=== PATIENT | female | born 1950 | race Caucasian/White ===

== ENCOUNTER → 2017-02-16 | Outpatient (CLI) | payer MEDICARE, BC ==
[~2017-02-16] MED LIST: AEROSPAN80 MCG/Act IH; CALCIUM 600 PLU1 TAB PO; COLACE 100100 MG/CAP PO; COZAAR100 MG PO; GLUCOPHAGE500 MG/TAB PO; HCTZ 25MG TAB25 MG PO; LIPITOR20 MG PO; MASON NATURAL1200 MG PO; MIRALAX PA17 GM/Dose PO; MULTI VITAMINS1 TAB PO; NEURONTIN600 MG/TAB PO; PROAIR HFA0.09 MG/AC IH; SINGULAIR 110 MG/TAB PO
== END ==
LOC: COL.RAD 11:04
DX: Q43.8 Other specified congenital malformations of intestine (principal); K63.89 Other specified diseases of intestine; Z86.010 Personal history of colon polyps

== ENCOUNTER → 2017-03-02 | Outpatient (CLI) | payer MEDICARE, BC | LOC: COL.RAD 09:06 | DX: Q43.8 Other specified congenital malformations of intestine (principal); M47.816 Spondylosis without myelopathy or radiculopathy, lumbar region; Z90.710 Acquired absence of both cervix and uterus; Z86.010 Personal history of colon polyps | CPT/HCPCS: Q9967 ==

== ENCOUNTER → 2017-09-14 | Outpatient (CLI) | payer MEDICARE, BC | LOC: COL.CARD 09:41 | DX: R00.1 Bradycardia, unspecified (principal) ==

== ENCOUNTER → 2017-09-27 | Outpatient (CLI) | payer MEDICARE, BC | LOC: MC.RAD 10:12 | DX: Z12.31 Encounter for screening mammogram for malignant neoplasm of breast (principal) ==

== ENCOUNTER → 2017-10-18 | Outpatient (CLI) | payer MEDICARE, BC | LOC: COL.RAD 06:50 | DX: N28.1 Cyst of kidney, acquired (principal); N28.9 Disorder of kidney and ureter, unspecified | CPT/HCPCS: Q9967 ==

== ENCOUNTER 2018-01-08 09:56 | Emergency (ER) | payer MEDICARE, BC ==
[~2018-01-08] VITALS: Ht 167.6 cm; Wt 113.6 kg
[2018-01-08 10:13] VITALS: TEMP 99.3
[2018-01-08] MEDS ORDERED: ASPIRIN E.C. 8181 MG PO (10:16)
[2018-01-08] MEDS ORDERED: SYNTHROID0.05 MG/TA PO (10:17)
[2018-01-08] MEDS ORDERED: NORVASC 5MG5 MG/TAB PO (10:17)
[2018-01-08] MEDS ORDERED: 00186-0370-20 IH (10:17)
[2018-01-08 12:00] LABS: COLLECTION METHOD CLEAN CATCH
[2018-01-08 12:09] LABS: PH 7 (5-8); SQUAMOUS EPITHELIAL 0-2 /hpf; URINE APPEARANCE Clear; URINE BACTERIA Rare /hpf; URINE BILIRUBIN Negative (NEGATIVE); URINE BLOOD Negative (NEGATIVE); URINE COLOR Yellow; URINE GLUCOSE Negative (NEGATIVE); URINE KETONE Negative (NEGATIVE); URINE LEUKOCYTE ESTERASE Negative (NEGATIVE); URINE NITRATE Negative (NEGATIVE); URINE PROTEIN(semi-quant) Negative (NEGATIVE); URINE RBC 0-2 /hpf
[2018-01-08] MEDS ORDERED: FLEXERIL 1010 MG/TAB PO (13:00)
[2018-01-08] MEDS ORDERED: MEDROL 4MG DOSPA4 MG PO (13:14)
[2018-01-08 13:15] VITALS: BP 155/55; PULSE 42
== END 2018-01-08 13:17 | disposition home or self-care (01) ==
LOC: COL.ER 09:56
PROVIDERS: Nurse Practitioner
DX: M54.16 Radiculopathy, lumbar region (principal); Z79.84 Long term (current) use of oral hypoglycemic drugs; Z79.82 Long term (current) use of aspirin; Z79.52 Long term (current) use of systemic steroids
CPT/HCPCS: J1885

== ENCOUNTER → 2018-09-28 | Outpatient (CLI) | payer MEDICARE, BC ==
[~2018-09-28] MED LIST changes: +00186-0370-20 IH; +ASPIRIN E.C. 8181 MG PO; +FLEXERIL 1010 MG/TAB PO; +MEDROL 4MG DOSPA4 MG PO; +NORVASC 5MG5 MG/TAB PO; +SYNTHROID0.05 MG/TA PO
== END ==
LOC: COL.VAS 12:05
DX: I08.3 Combined rheumatic disorders of mitral, aortic and tricuspid valves (principal)

== ENCOUNTER → 2018-11-29 | Outpatient (CLI) | payer MEDICARE, BC | LOC: MC.RAD 09:05 | DX: Z12.31 Encounter for screening mammogram for malignant neoplasm of breast (principal); N63.42 Unspecified lump in left breast, subareolar ==

== ENCOUNTER → 2018-12-05 | Outpatient (CLI) | payer MEDICARE, BC | LOC: MC.RAD 07:25 | DX: N63.20 Unspecified lump in the left breast, unspecified quadrant (principal) ==

== ENCOUNTER → 2019-10-03 | Outpatient (CLI) | payer MEDICARE, BC | LOC: COL.VAS 07:25 | DX: I08.0 Rheumatic disorders of both mitral and aortic valves (principal) ==

== ENCOUNTER → 2020-10-23 | Outpatient (CLI) | payer MEDICARE, BC | LOC: MC.RAD 10:48 | DX: Z12.31 Encounter for screening mammogram for malignant neoplasm of breast (principal) ==

== ENCOUNTER 2020-11-29 13:00 | Outpatient (RCR) | payer MEDICARE, BC ==
[~2020-11-29] VITALS: Ht 167.6 cm; Wt 92.4 kg
[2020-11-29] VITALS (11 sets, daily range): BP systolic 113–156; BP diastolic 62–90; PULSE 44–51; TEMP 98.4–98.8
[2020-11-29] MEDS ORDERED: MELATONIN EXTRA1 TAB PO (14:14)
[2020-11-29] MEDS ORDERED: GLUCOPHAGE500 MG/TAB PO (14:16)
[2020-11-29] MEDS ORDERED: LIPITOR20 MG PO (14:16)
[2020-11-29] MEDS ORDERED: PROAIR HFA0.09 MG/AC IH (14:17)
== END 2020-11-29 18:30 | disposition home or self-care (01) ==
LOC: EUO 13:00 → EDSTATUS 13:00 → EUO 18:30
DX: D53.9 Nutritional anemia, unspecified (principal)
CPT/HCPCS: J7050; P9040

== ENCOUNTER 2020-12-20 05:19 | Day surgery (SDC) | payer MEDICARE, BC ==
[~2020-12-20] VITALS: Ht 167.6 cm; Wt 94.0 kg
[~2020-12-20 05:19] MED LIST changes: +MELATONIN EXTRA1 TAB PO
[2020-12-20 05:53] VITALS: BP 161/46; PULSE 56; TEMP 98.2
[2020-12-20] MEDS ORDERED: DULCOLAX STOOL100 MG PO (06:01)
[2020-12-20] MEDS ORDERED: MIRALAX PA17 GM/Dose PO (06:03)
[2020-12-20] MEDS ORDERED: ONE-A-DAY ESSE1 EACH PO (06:05)
[2020-12-20] MEDS ORDERED: 00186-0370-20 IH (06:06)
--- NOTE | 2020-12-20 06:08 | NUR ---
TO RM 8 AT 0530- CALL LIGHT IN REACH AT BEDSIDE.
[2020-12-20 08:46] VITALS: BP 141/47; PULSE 59
[2020-12-20] MEDS ORDERED: NORCO 325 MG-51 TAB PO (08:46)
--- NOTE | 2020-12-20 08:46 | NUR ---
TO RM 8 PER CART FROM OR. ALERT ORIENTED X3, TALKING TO STAFF AND . DRESSING OVER PORT SITE CLEAN DRY INTACT WITH PORT ACCESSED. INCISION ABOVE PORT SITE WITH MARQUEZ SET CLEAN DRY INTACT. DENIES PAIN OR DISCOMFORT
[2020-12-20 09:00] VITALS: BP 126/43; PULSE 49
--- NOTE | 2020-12-20 09:00 | NUR ---
RECEIVED CRANBERRY JUICE AND MUFFIN. AT BEDSIDE.
[2020-12-20 09:15] VITALS: BP 124/36; PULSE 47
--- NOTE | 2020-12-20 09:15 | NUR ---
PATIENT STATED HER PULSE IS ALWAYS SLOW. ATE 100% AND TOLERATED WELL.
[2020-12-20 09:30] VITALS: BP 119/38; PULSE 48
--- NOTE | 2020-12-20 09:30 | NUR ---
PATIENT STATED SHE FEELS GOOD AND READY TO GO HOME.
[2020-12-20 09:45] VITALS: TEMP 98
--- NOTE | 2020-12-20 09:45 | NUR ---
RECEIVED DISCHARGE INSTRUCTIONS AND VERBALIZED UNDERSTANDING. PATIENT TO GO TO [facility] UPON DISCHARGE. DISCONTINUED IV AND INT- CATHETER INTACT. PATIENT GETTING DRESSED.
--- NOTE | 2020-12-20 09:55 | NUR ---
DISCHARGED PER WC BY NURSING STAFF TO PRIVATE CAR IN CARE OF MARIKA.
== END 2020-12-20 10:09 | disposition home or self-care (01) ==
LOC: SDCO 05:19
DX: D46.9 Myelodysplastic syndrome, unspecified (principal); D63.0 Anemia in neoplastic disease; D53.9 Nutritional anemia, unspecified; I10 Essential (primary) hypertension; G47.33 Obstructive sleep apnea (adult) (pediatric); J45.909 Unspecified asthma, uncomplicated; E07.9 Disorder of thyroid, unspecified; E78.5 Hyperlipidemia, unspecified; E11.42 Type 2 diabetes mellitus with diabetic polyneuropathy; Z79.84 Long term (current) use of oral hypoglycemic drugs; Z80.0 Family history of malignant neoplasm of digestive organs; Z80.8 Family history of malignant neoplasm of other organs or systems; Z20.822 Contact with and (suspected) exposure to COVID-19; Z79.899 Other long term (current) drug therapy; Z79.890 Hormone replacement therapy
CPT/HCPCS: C1788; J0690; J1644; J2405; J2704; J3010; J7120

== ENCOUNTER 2021-01-04 12:43 | Outpatient (RCR) | payer MEDICARE, BC ==
[2021-01-04] VITALS (7 sets, daily range): BP systolic 127–1138; BP diastolic 39–53; PULSE 44–51; TEMP 98.1–98.3
[~2021-01-04 12:43] MED LIST changes: +DULCOLAX STOOL100 MG PO; +NORCO 325 MG-51 TAB PO; +ONE-A-DAY ESSE1 EACH PO
--- NOTE | 2021-01-04 18:01 | NUR ---
Transfusion complete, port deaccessed, flushed with NS, followed by heparin flush. Pt tolerated transfusion well with no adverse reactions noted.
== END 2021-01-05 12:14 | disposition home or self-care (01) ==
LOC: EUO 12:43
DX: D46.21 Refractory anemia with excess of blasts 1 (principal); D53.9 Nutritional anemia, unspecified; R53.83 Other fatigue
CPT/HCPCS: P9040

== ENCOUNTER 2021-03-07 16:50 | Outpatient (RCR) | payer MEDICARE, BC ==
[~2021-03-07] VITALS: Ht 167.6 cm; Wt 94.0 kg
[2021-03-08] VITALS (7 sets, daily range): BP systolic 118–142; BP diastolic 41–62; PULSE 48–54; TEMP 98–98.5
--- NOTE | 2021-03-08 19:16 | NUR ---
Patient tolerated blood transfusion well, vital signs stable, denies any complications, PORT flushed and heparinized, I escorted her to the ER exit where she is leaving with her
== END 2021-03-08 19:22 | disposition home or self-care (01) ==
LOC: EUO 16:50 → MEDICAL 03-08 12:58 → EUO 03-08 13:00
DX: D46.21 Refractory anemia with excess of blasts 1 (principal); D53.9 Nutritional anemia, unspecified
CPT/HCPCS: OP; J7050; P9040

== ENCOUNTER 2021-12-08 19:24 | Inpatient (IN) | payer MEDICARE, BC ==
[~2021-12-08] VITALS: Ht 167.6 cm; Wt 89.8 kg
[2021-12-08] VITALS (30 sets, daily range): BP systolic 132; BP diastolic 61; PULSE 58; TEMP 96.9; O2SAT 93–96
[2021-12-08 20:43] LABS: BASO % 0.3 % (0.0-2.0); EOS # 0.4 K/mm3 (0.0-0.7); EOS % 3.4 % (0.0-4.0); GRAN % 81.3 % (42.2-75.2); HEMOGLOBIN 11.1 g/dl (12.5-16.0); LYMPH # 0.7 K/mm3 (1.2-3.4); LYMPH % 6.3 % (20.0-51.0); MEAN CELL VOLUME 98 fl (80.0-100.0); MEAN CORPUSCULAR HEMOGLOBIN 32 pg (27-31); MEAN CORPUSCULAR HGB CONC 33 g/dl (33.0-37.0); MEAN PLATELET VOLUME 8.9 fl (7.4-10.4); MONO # 0.9 K/mm3 (0.1-0.6); MONO % 8.3 % (1.7-9.3); PLATELET COUNT 181 K/mm3 (130-400); RED BLOOD COUNT 3.43 M/mm3 (4.10-5.30); REDCELL DISTRIBUTION WIDTH-CV 13.9 % (11.5-14.5)
[2021-12-08 20:44] LABS: HEMATOCRIT 33.7 % (37.0-47.0)
[2021-12-08 21:00] LABS: ALBUMIN 3.1 gm/dL (3.4-4.8); BILIRUBIN,TOTAL 2.4 mg/dL (0.2-1.2); CREATININE, serum 0.72 mg/dL (0.57-1.11); TOTAL PROTEIN 6.2 gm/dL (6.2-8.1)
[2021-12-08] MEDS ORDERED: CYMBALTA 60MG60 MG PO (23:34)
[2021-12-08] MEDS ORDERED: TAMBOCOR50 MG PO (23:35)
[2021-12-08] MEDS ORDERED: COREG 3.123.125 MG/T PO (23:35)
[2021-12-08] MEDS ORDERED: ZOVIRAX800 MG PO (23:36)
[2021-12-09] VITALS (105 sets, daily range): BP systolic 109–132; BP diastolic 46–61; PULSE 44–54; TEMP 96.9–98.4; O2SAT 83–99
[2021-12-09 04:29] LABS: HEMOGLOBIN 10.4 g/dl (12.5-16.0); MEAN CELL VOLUME 100 fl (80.0-100.0); MEAN CORPUSCULAR HEMOGLOBIN 33 pg (27-31); MEAN CORPUSCULAR HGB CONC 33 g/dl (33.0-37.0); MEAN PLATELET VOLUME 8.7 fl (7.4-10.4); PLATELET COUNT 181 K/mm3 (130-400); RED BLOOD COUNT 3.18 M/mm3 (4.10-5.30); REDCELL DISTRIBUTION WIDTH-CV 13.5 % (11.5-14.5)
[2021-12-09 04:34] LABS: HEMATOCRIT 31.7 % (37.0-47.0)
[2021-12-09 04:45] LABS: CALCIUM 8.7 mg/dL (8.4-10.2); CREATININE, serum 0.72 mg/dL (0.57-1.11); POTASSIUM 4.5 mmol/L (3.5-4.5)
[2021-12-09 05:04] LABS: LYMPHOCYTE 3 % (20.0-51.0); NEUTROPHILS 97 % (42.0-75.2)
[2021-12-09 05:05] LABS: SCHISTOCYTES 1+; TEAR DROP CELLS 1+
[2021-12-09 05:06] LABS: POLYCHROMASIA 1+
--- NOTE | 2021-12-09 10:51 | NUR ---
First visit from the senior administrative assistant. No needs right now.
--- NOTE | 2021-12-09 14:25 | NUR ---
Swat Team Member met with patient and her , Bandar (ph#[phone]) to discuss discharge planning. [place] and sees Dr. Nate Agarwal for primary care. Patient obtains medications from [facility] or by mail from the [facility] pharmacy. Patient has a front wheeled walker and no other DME at home. Patient reports independence with ADLS and plans to return home at time of discharge. Patient does not normally wear oxygen although she is currently requiring it. Patient is hopeful she will not need it at time of discharge. Patient reports her children in [place], [place] and [place] are her DPOA-HC. SW was unable to locate copy in EMR. Discharge Plan: Home
[2021-12-09] MEDS ORDERED: TYLENOL 8 HR PO (14:35)
[2021-12-09] MEDS ORDERED: MEPRON750 MG/5 M PO (14:36)
[2021-12-09] MEDS ORDERED: ERGOCALCIFER50000 IU PO (14:37)
[2021-12-09] MEDS ORDERED: MAG-OX 400400 MG/TAB PO (14:38)
[2021-12-09] MEDS ORDERED: ASPIRIN E.C. 8181 MG PO (14:40)
[2021-12-09] MEDS ORDERED: PROGRAF 0.5MG0.5 MG PO (14:40)
--- NOTE | 2021-12-09 19:21 | NUR ---
RECEIVED CHANGE OF SHIFT REPORT FROM DAY SHIFT RN.
--- NOTE | 2021-12-09 23:42 | NUR ---
MABLE FROM LAB, CALLED RESULTS FROM 1 BLOOD CULTURE BOTTLE OF GRAM + COCCI W/GRAM STAIN RESULT OF STAPHYLOCOCCUS.
--- NOTE | 2021-12-10 00:33 | NUR ---
Vancomycin Initial Dosing Pharmacy Note Ordering provider: Skip Hammond MD Indication/duration: Bacteremia x 5 days Relevant comorbidities: HTN, MDS w/ hx of [facility] LABS: WBC = 8.4, SCr = 0.72 Recommendation: Will draw troughs and follow levels. Loading dose: 1.5 grams Maintenance dose: 1 gram every 12 hours Trough goal: 15-20 ug/mL
[2021-12-10 03:56] VITALS: BP 120/46; PULSE 41; TEMP 97.2
[2021-12-10 06:18] LABS: HEMOGLOBIN 10.2 g/dl (12.5-16.0); MEAN CELL VOLUME 103 fl (80.0-100.0); MEAN CORPUSCULAR HEMOGLOBIN 32 pg (27-31); MEAN CORPUSCULAR HGB CONC 31 g/dl (33.0-37.0); MEAN PLATELET VOLUME 9.1 fl (7.4-10.4); PLATELET COUNT 189 K/mm3 (130-400); RED BLOOD COUNT 3.15 M/mm3 (4.10-5.30); REDCELL DISTRIBUTION WIDTH-CV 13.5 % (11.5-14.5)
[2021-12-10 06:26] LABS: HEMATOCRIT 32.5 % (37.0-47.0)
--- NOTE | 2021-12-10 06:38 | NUR ---
CHANGE OF SHIFT REPORT GIVEN TO DAY SHIFT RNCHARITY.
[2021-12-10 06:42] LABS: CALCIUM 8.7 mg/dL (8.4-10.2); CREATININE, serum 0.79 mg/dL (0.57-1.11); POTASSIUM 4.3 mmol/L (3.5-4.5)
[2021-12-10 06:51] LABS: LYMPHOCYTE 6 % (20.0-51.0); NEUTROPHILS 93 % (42.0-75.2)
[2021-12-10 06:52] LABS: HYPOCHROMIA 2+; PLATELET ESTIMATE NORMAL (NORMAL); SCHISTOCYTES 1+; TEAR DROP CELLS 1+
[2021-12-10 07:22] VITALS: BP 137/66; PULSE 50; TEMP 97.9
--- NOTE | 2021-12-10 08:43 | NUR ---
Pt assessment complete. Pt is laying in bed upon entry, she is A/O x4. Her breathing is currently even and unlabored on CPAP, switched to NC. Pt currently denies SOB. Reports very intermittent cough. No pain at this time. Denies N/V. No further needs, call light within reach.
[2021-12-10 11:06] VITALS: BP 125/48; PULSE 56; TEMP 97.4
[2021-12-10 15:41] VITALS: BP 117/74; PULSE 49; TEMP 97.8
--- NOTE | 2021-12-10 19:11 | NUR ---
Pt taken off of O2, SpO2 94% on RA. No needs at this time. Call light within reach.
--- NOTE | 2021-12-10 20:00 | NUR ---
PATIENT IS A&O. NOTED SB IN THE 40'S ON TELE. ALL OTHER VSS. PATIENT WAS WEANED OFF OXYGEN TODAY AND IS NOW 94% ON RA. NO C/O COUGH, SOA OR WHEEZING. NOTED DEMINISHED A&P LUNG RAMIREZ. CLEAR IN UPPER LUNG RAMIREZ. POSITIVE BC. IV ABX INFUSING VIA PUMP INTO RIGHT AC IV PER ORDERS. HS MEDS GIVEN, TOLERATED WELL. EVENING BS WAS 136, NO SSI REQUIRED. GENERAL DIET. PATIENT SITTING UP IN BEDSIDE CHAIR WITH NO COMPLAINTS. HEAD TO TOE ASSESSMENT COMPLETE, SEE CHARTING. NO OTHER NEEDS AT THIS TIME. CALL LIGHT IN REACH.
--- NOTE | 2021-12-10 20:00 | NUR ---
TX GIVEN VIA MOUTHPIECE, TOLERATED WELL.
[2021-12-10 20:52] VITALS: BP 134/55; PULSE 51; TEMP 98.4
[2021-12-10 23:18] VITALS: BP 124/47; PULSE 49; TEMP 97.6
[2021-12-11 04:02] VITALS: BP 131/51; PULSE 49; TEMP 97.3
--- NOTE | 2021-12-11 04:45 | NUR ---
TELE CALLED AND REPORTED PATIENT HR ON TELE DROPPED DOWN INTO THE UPPER 30'S WHILE SLEEPING. PATIENT WAS SOUND ASLEEP WITH C-PAP ON WHEN NURSING WOKE HER UP. ASYMPTOMATIC. ALL OTHER VSS. NOTIFIED HOSPITALIST, SEE MEDS ON HOLD. CARDS TO SEE PATIENT TODAY.
[2021-12-11 06:32] LABS: GRAN % 89.5 % (42.2-75.2); HEMOGLOBIN 10.2 g/dl (12.5-16.0); LYMPH # 0.5 K/mm3 (1.2-3.4); LYMPH % 5.8 % (20.0-51.0); MEAN CELL VOLUME 99 fl (80.0-100.0); MEAN CORPUSCULAR HEMOGLOBIN 32 pg (27-31); MEAN CORPUSCULAR HGB CONC 32 g/dl (33.0-37.0); MEAN PLATELET VOLUME 8.9 fl (7.4-10.4); MONO # 0.3 K/mm3 (0.1-0.6); MONO % 3.8 % (1.7-9.3); PLATELET COUNT 195 K/mm3 (130-400); RED BLOOD COUNT 3.19 M/mm3 (4.10-5.30); REDCELL DISTRIBUTION WIDTH-CV 13.6 % (11.5-14.5)
[2021-12-11 06:35] LABS: HEMATOCRIT 31.5 % (37.0-47.0)
[2021-12-11 06:50] LABS: CALCIUM 8.6 mg/dL (8.4-10.2); CREATININE, serum 0.79 mg/dL (0.57-1.11); MAGNESIUM 2.6 mg/dL (1.6-2.6); POTASSIUM 4.6 mmol/L (3.5-4.5)
[2021-12-11 07:19] VITALS: BP 123/47; PULSE 47; TEMP 97.2
[2021-12-11 11:11] VITALS: BP 129/49; PULSE 45; TEMP 97.7
[2021-12-11 11:38] VITALS: BP 134/52; PULSE 46; TEMP 97.2
[2021-12-11] MEDS ORDERED: PREDNISONE20 MG PO ×2 (12:03)
--- NOTE | 2021-12-11 13:56 | NUR ---
The patient is to discharge back home with her today, 12/11. SW met with the patient and presented and read the IM form outloud to her. The patient verbalized understanding and of discharge today. She signed the form and KIERAN provided her with a copy. No additional needs at this time.
[2021-12-11 15:03] VITALS: BP 127/45; PULSE 50; TEMP 97.8
--- NOTE | 2021-12-11 18:30 | NUR ---
Shift assessment performed. Scheduled medications given. Morning cares provided by student nurse under the supervision of a licensed professional. VSS have been stable, but heart rate has been bradycardic. Patient denies any pain discomfort, SOA, or further needs at this time. Call light in reach. Patient A&O.
--- NOTE | 2021-12-11 19:44 | NUR ---
TX GIVEN VIA MOUTHPIECE, TOLERATED WELL. PT LEFT ON ROOM AIR. HOME CPAP UNIT SETUP AND READY WHENEVER PT WANTS TO PUT IT ON.
[2021-12-11 20:12] VITALS: BP 135/54; PULSE 52; TEMP 98
[2021-12-12 00:39] VITALS: BP 151/55; PULSE 49; TEMP 98
[2021-12-12 04:29] VITALS: BP 153/52; PULSE 51; TEMP 98.1
--- NOTE | 2021-12-12 05:35 | NUR ---
ASSESSMENT COMPLETE FOR THIS SHIFT. PT RESTING IN BED TEXTING ON HER PHONE. PT DENIED PAIN, PALPITATIONS, N,V,D, SOB OR DIZZINESS. PT CONTINUES TO BE BRADYCARDIC, ASYMPTOMATIC. WILL CONTINUE TO MONITOR. PT EXPRESSED NO OTHER NEEDS AT THIS TIME. CALL LIGHT WITHIN REACH.
[2021-12-12 07:34] VITALS: BP 152/55; PULSE 55; TEMP 97.9
--- NOTE | 2021-12-12 08:27 | NUR ---
Shift assessment performed. Patient is bradycardic, all other VSS. Patient is asymptomatic. Patient A&O. Patient denies any pain, discomfort, SOA, or further needs at this time. +1 edema noted on BLE. Lung sound clear. Bowel sound present in all four quadrants. No other skin issues noted. Call light in reach.
[2021-12-12 09:57] LABS: HEMOGLOBIN 11.2 g/dl (12.5-16.0); MEAN CELL VOLUME 99 fl (80.0-100.0); MEAN CORPUSCULAR HEMOGLOBIN 33 pg (27-31); MEAN CORPUSCULAR HGB CONC 33 g/dl (33.0-37.0); MEAN PLATELET VOLUME 8.5 fl (7.4-10.4); PLATELET COUNT 221 K/mm3 (130-400); RED BLOOD COUNT 3.44 M/mm3 (4.10-5.30); REDCELL DISTRIBUTION WIDTH-CV 13.8 % (11.5-14.5)
[2021-12-12 10:01] LABS: HEMATOCRIT 34.1 % (37.0-47.0)
[2021-12-12 10:16] LABS: ALBUMIN 2.8 gm/dL (3.4-4.8); BILIRUBIN,TOTAL 1.3 mg/dL (0.2-1.2); CALCIUM 8.5 mg/dL (8.4-10.2); CREATININE, serum 0.76 mg/dL (0.57-1.11); POTASSIUM 4.1 mmol/L (3.5-4.5); TOTAL PROTEIN 5.5 gm/dL (6.2-8.1)
[2021-12-12 10:21] LABS: LYMPHOCYTE 7 % (20.0-51.0); NEUTROPHILS 90 % (42.0-75.2)
[2021-12-12 10:22] LABS: PLATELET ESTIMATE NORMAL (NORMAL)
[2021-12-12 10:23] LABS: HYPOCHROMIA 1+
--- NOTE | 2021-12-12 11:29 | NUR ---
PT REFUSED. BEING TRANSFERRED TO [facility].
[2021-12-12 11:53] VITALS: BP 152/55; PULSE 55; TEMP 97.9
--- NOTE | 2021-12-12 11:57 | NUR ---
The patient is to transfer to [facility] today. No additional needs at this time.
[2021-12-12 12:30] VITALS: BP 156/86
--- NOTE | 2021-12-12 12:55 | NUR ---
Patient deemed fit for transfer to [facility]. Scheduled medications given by student nurse under the supervision of a licensed professional. Patient bradycardic, all other VSS. Patient A&O. Patient denies any pain, discomfort, SOA, or further needs at this time. Patient escorted from [facility] by EMS. Report called to DEBRA Cohen at [facility].
== END 2021-12-12 12:30 | disposition short-term general hospital (02) | DRG 189 ==
LOC: COL.ER 19:24 → MEDICAL 21:46 → ICU 21:46 → MEDICAL 12-09 09:17
PROVIDERS: Family Medicine; Physician Assistant; Student in an Organized Health Care Education/Training Program; ADMIT Internal Medicine
DX: J96.01 Acute respiratory failure with hypoxia (principal); J45.901 Unspecified asthma with (acute) exacerbation; D46.9 Myelodysplastic syndrome, unspecified; I10 Essential (primary) hypertension; E03.9 Hypothyroidism, unspecified; E88.81 Metabolic syndrome and other insulin resistance; E83.42 Hypomagnesemia; E11.9 Type 2 diabetes mellitus without complications; E78.5 Hyperlipidemia, unspecified; D50.9 Iron deficiency anemia, unspecified; I48.0 Paroxysmal atrial fibrillation; Z96.652 Presence of left artificial knee joint; Z20.822 Contact with and (suspected) exposure to COVID-19; Z87.442 Personal history of urinary calculi; Z88.0 Allergy status to penicillin; Z23 Encounter for immunization
CPT/HCPCS: 99223-AI; 99232-AI; 99233-AI; 99239; J0456; J1815; J2920; J2930; J3370; J7050; J7507; J7512